=== PATIENT | female | born 1945 | race Caucasian/White ===

== ENCOUNTER 2020-06-27 13:14 | Inpatient (IN) | payer MEDICARE, BC ==
[~2020-06-27] VITALS: Ht 157.5 cm; Wt 75.9 kg
[2020-06-27] MEDS ORDERED: ipratropium/albuterol 3ml nebule NEB ONE (14:20)
[2020-06-27] MEDS ORDERED: methylPREDNISolone sod succ 125mg/2ml vial IV ONE (14:20)
[2020-06-27 14:36] LABS: BASOPHILS % (AUTO) 0.5 % (0-1); EOSINOPHILS % (AUTO) 0.1 % (0-6); HEMATOCRIT 30.6 % (35.0-45.0); HEMOGLOBIN 9.8 g/dl (12.0-16.0); LYMPHOCYTES # (AUTO) 0.9 X10'3 (1.1-4.8); LYMPHOCYTES % (AUTO) 16.2 % (21-51); MEAN CORPUSCULAR HEMOGLOBIN 25.1 PG (27.0-31.0); MEAN CORPUSCULAR HGB CONC 31.9 g/dL (33.0-36.5); MEAN CORPUSCULAR VOLUME 78.7 FL (78-98); MEAN PLATELET VOLUME 7.3 FL (7.4-10.4); MONOCYTES # (AUTO) 0.4 X10'3 (0-0.9); MONOCYTES % (AUTO) 6.7 % (2-12); NEUTROPHILS # (AUTO) 4.1 X10'3 (1.8-7.7); NEUTROPHILS % (AUTO) 76.5 % (42-75); PLATELET COUNT 297 X10'3 (140-440); RED BLOOD COUNT 3.89 X10'6 (4.20-5.60); RED CELL DISTRIBUTION WIDTH 18.5 % (11.5-14.5); WHITE BLOOD COUNT 5.3 X10'3 (4.5-11.0)
[2020-06-27] MEDS ORDERED: CefTRIAXone/D5W-Rocephin 1gm 50 ML IV ONE (14:40)
[2020-06-27] MEDS ORDERED: azithromycin/NS 500mg/250ml 250 ML IV ONE (14:40)
[2020-06-27 14:56] LABS: ALANINE AMINOTRANSFERASE 48 U/L (12-78); ALBUMIN 3.4 G/DL (3.4-5.0); ALBUMIN/GLOBULIN RATIO 0.9 (1.1-1.5); ALKALINE PHOSPHATASE 65 IU/L (46-116); ANION GAP 8 (8-16); ASPARTATE AMINO TRANSFERASE 36 U/L (10-37); BILIRUBIN,TOTAL 0.3 MG/DL (0.1-1.0); BLOOD UREA NITROGEN 12 MG/DL (7-18); BUN/CREATININE RATIO 12.6 (6.6-38.0); CHLORIDE 105 MMOL/L (99-107); CREATININE 0.95 MG/DL (0.40-0.90); GLUCOSE 109 MG/DL (70-104); POTASSIUM 3.9 MMOL/L (3.5-5.1); SODIUM 138 MMOL/L (135-145); TOTAL CARBON DIOXIDE 25.3 MMOL/L (24-32); eGFR 58 ML/MIN
[2020-06-27] MEDS ORDERED: ROSU5TAB PO (15:07)
[2020-06-27] MEDS ORDERED: LORA-269 PO (15:07)
[2020-06-27] MEDS ORDERED: ESCI5TAB12 PO (15:07)
[2020-06-27] MEDS ORDERED: LEVO50TA PO (15:07)
[2020-06-27] MEDS ORDERED: LEVA0.6319 NEB (15:07)
[2020-06-27] MEDS ORDERED: ESOM40CA PO (15:07)
[2020-06-27] MEDS ORDERED: ADV50250 IH (15:07)
[2020-06-27] MEDS ORDERED: AMLO2.5T2 PO (15:07)
[2020-06-27] MEDS ORDERED: LOSA25TA96 PO (15:07)
[2020-06-27] MEDS ORDERED: mag hydrox/Alum hydrox/simeth 30ml oral suspension PO PRN (16:20)
[2020-06-27] MEDS ORDERED: acetaminophen 325mg tablet PO PRN (16:20)
[2020-06-27] MEDS ORDERED: ondansetron/PF 4mg/2ml inj IV PRN (16:20)
[2020-06-27] MEDS ORDERED: magnesium 2GM in 50ml NS 50 ML IV PRN (16:20)
[2020-06-27] MEDS ORDERED: potassium CL 10mEq/100ml bag 100 ML IV PRN ×2 (16:20)
[2020-06-27] MEDS ORDERED: magnesium hydroxide 30ml (MOM) UD suspension PO PRN (16:20)
[2020-06-27] MEDS ORDERED: ipratropium/albuterol 3ml nebule NEB PRN (16:20)
[2020-06-27] MEDS ORDERED: magnesium 4gm in 100ml NS 100 ML IV PRN (16:20)
[2020-06-27] MEDS ORDERED: potassium Cl 20 mEq SR tablet PO PRN ×2 (16:20)
[2020-06-27] MEDS ORDERED: RISE150T PO (16:28)
[2020-06-27] MEDS ORDERED: CALC-965 PO (16:28)
[2020-06-27] MEDS ORDERED: ASPI-1265 PO (16:28)
[2020-06-27] MEDS ORDERED: ALBUTEROL INHALER 1 PUFF/90 MCG INHALER IH PRN (17:00)
--- NOTE | 2020-06-27 17:30 | NUR ---
Patient in room ED 11. I have received report from Maverick and had the opportunity to ask questions and assume patient care.
[2020-06-27 18:19] VITALS: BP 134/70
--- NOTE | 2020-06-27 18:25 | NUR ---
Pt arrived to the floor at 1800, after donning all of the [facility] gear, pt was tucked in, vitals taken, dressed in gown and able to give her the meal tray.
--- NOTE | 2020-06-27 18:30 | NUR ---
Patient in room ORTHO 4006. I have received report from Jessica LUIS and had the opportunity to ask questions and assume patient care.
--- NOTE | 2020-06-27 18:31 | NUR ---
Problems reprioritized. Patient report given, questions answered & plan of care reviewed with Angelina.
[2020-06-27] MEDS ORDERED: dexamethasone 4mg/ml inj IV SCH (20:00)
[2020-06-27] MEDS: K and/or MAG REPLACEMENT MC SCH (20:00)
[2020-06-27] MEDS ORDERED: enoxaparin 40mg/0.4ml syringe SQ SCH (20:00)
[2020-06-27] MEDS ORDERED: RISEDRONATE SODIUM PO SCH (20:50)
[2020-06-27] MEDS ORDERED: LORazepam 1 MG tablet PO PRN (20:50)
[2020-06-27] MEDS ORDERED: aspirin 81mg tab.chew PO SCH (21:00)
[2020-06-27] MEDS ORDERED: losartan 25mg tablet PO SCH (21:00)
[2020-06-27] MEDS ORDERED: albuterol 2.5 MG/3 ML nebule NEB SCH (21:00)
[2020-06-27 21:27] VITALS: BP 125/61
[2020-06-28 05:20] VITALS: BP 117/67
[2020-06-28 06:07] LABS: BASOPHILS % (AUTO) 0.5 % (0-1); EOSINOPHILS % (AUTO) 0 % (0-6); HEMOGLOBIN 9.2 g/dl (12.0-16.0); LYMPHOCYTES # (AUTO) 0.8 X10'3 (1.1-4.8); LYMPHOCYTES % (AUTO) 23.5 % (21-51); MEAN CORPUSCULAR HEMOGLOBIN 24.6 PG (27.0-31.0); MEAN CORPUSCULAR HGB CONC 31.6 g/dL (33.0-36.5); MEAN CORPUSCULAR VOLUME 77.8 FL (78-98); MEAN PLATELET VOLUME 7.4 FL (7.4-10.4); MONOCYTES # (AUTO) 0.2 X10'3 (0-0.9); NEUTROPHILS # (AUTO) 2.5 X10'3 (1.8-7.7); PLATELET COUNT 284 X10'3 (140-440); RED BLOOD COUNT 3.73 X10'6 (4.20-5.60); RED CELL DISTRIBUTION WIDTH 18.3 % (11.5-14.5); WHITE BLOOD COUNT 3.5 X10'3 (4.5-11.0)
[2020-06-28 06:27] LABS: ALANINE AMINOTRANSFERASE 36 U/L (12-78); ALBUMIN 3.4 G/DL (3.4-5.0); ALBUMIN/GLOBULIN RATIO 0.9 (1.1-1.5); ALKALINE PHOSPHATASE 66 IU/L (46-116); ANION GAP 8 (8-16); ASPARTATE AMINO TRANSFERASE 25 U/L (10-37); BILIRUBIN,TOTAL 0.3 MG/DL (0.1-1.0); BLOOD UREA NITROGEN 14 MG/DL (7-18); BUN/CREATININE RATIO 17.1 (6.6-38.0); CALCIUM 8.4 MG/DL (8.5-10.1); CHLORIDE 106 MMOL/L (99-107); CREATININE 0.82 MG/DL (0.40-0.90); GLUCOSE 171 MG/DL (70-104); MAGNESIUM 2.4 MG/DL (1.5-2.4); POTASSIUM 4.6 MMOL/L (3.5-5.1); SODIUM 139 MMOL/L (135-145); TOTAL CARBON DIOXIDE 25.3 MMOL/L (24-32); TOTAL PROTEIN 7.3 G/DL (6.4-8.2); eGFR 68 ML/MIN
--- NOTE | 2020-06-28 06:27 | NUR ---
Problems reprioritized. Patient report given, questions answered & plan of care reviewed with Georgie LUIS.
--- NOTE | 2020-06-28 06:30 | NUR ---
Patient in room ORTHO 4006. I have received report from Angelina LUIS and had the opportunity to ask questions and assume patient care.
[2020-06-28] MEDS ORDERED: levoTHYROXINE 25mcg tablet PO SCH (07:00)
[2020-06-28] MEDS ORDERED: pantoprazole 40mg Tablet.DR PO SCH (07:30)
[2020-06-28] MEDS ORDERED: calcium carbonate/vitamin D3 tablet PO SCH (07:30)
[2020-06-28] MEDS ORDERED: ESCITALOPRAM OXALATE 5 MG TABLET PO SCH (08:00)
[2020-06-28] MEDS ORDERED: amLODIPine 2.5mg tablet PO SCH (08:00)
[2020-06-28] MEDS ORDERED: atorvastatin 20mg tablet PO SCH (08:00)
[2020-06-28] MEDS ORDERED: azithromycin 250mg tablet PO SCH (08:00)
[2020-06-28] MEDS ORDERED: dexamethasone sod phosphate 10mg/ml inj IV SCH (08:00)
[2020-06-28] MEDS ORDERED: non-formulary drug (Fluticasone/Salmeterol* (Advair 250-50 Diskus*) 1 PUFF) IH SCH (08:00)
[2020-06-28] MEDS: K and/or MAG REPLACEMENT MC SCH (08:00)
[2020-06-28] MEDS ORDERED: budesonide 0.5mg/2ml UD nebule IH SCH (08:00)
[2020-06-28] MEDS ORDERED: CefTRIAXone/D5W-Rocephin 1gm 50 ML IV SCH (08:00)
[2020-06-28 10:00] VITALS: BP 130/70
[2020-06-28] MEDS ORDERED: DEXA6TAB PO (14:38)
--- NOTE | 2020-06-28 17:30 | NUR ---
Patient stable for discharge home today. All discharge instructions given to patient. IV discontinued with canula intact.
[2020-06-29] MEDS ORDERED: DEXAMETHASONE 6 MG TABLET PO SCH (08:00)
== END 2020-06-28 17:30 | disposition home or self-care (01) | DRG 177 ==
LOC: ER 13:14 → ED HOLD 16:20 → ORTHO 4S 18:01
PROVIDERS: ADMIT Family Medicine; ATTEND Family Medicine
DX: U07.1 COVID-19 (principal); J96.01 Acute respiratory failure with hypoxia; J44.1 Chronic obstructive pulmonary disease with (acute) exacerbation; D64.9 Anemia, unspecified; E03.9 Hypothyroidism, unspecified; Z66 Do not resuscitate; E78.5 Hyperlipidemia, unspecified; R55 Syncope and collapse; F32.9 Major depressive disorder, single episode, unspecified; I10 Essential (primary) hypertension; Z85.43 Personal history of malignant neoplasm of ovary; Z87.891 Personal history of nicotine dependence; Z90.710 Acquired absence of both cervix and uterus; Z88.5 Allergy status to narcotic agent; Z88.8 Allergy status to other drugs, medicaments and biological substances; Z79.899 Other long term (current) drug therapy; Z79.82 Long term (current) use of aspirin
CPT/HCPCS: 36415; 71045; 80053; 83605; 83735; 83880; 84145; 85025; 87040; 87081; 87635; 93005; 94640; 94760; 96365; 96375; 99285; C9803; G0378; J0456; J0696; J1100; J1650; J2930